=== PATIENT | male | born 1995 | race African-American/Black ===

== ENCOUNTER 2016-11-17 22:37 | Emergency (ER) | payer MEDICAID ==
[~2016-11-17] VITALS: Ht 170.2 cm; Wt 102.0 kg
[~2016-11-17 22:37] MED LIST: CEPH500C2 PO; HYDR-523 PO; IBUP-1510 PO
[2016-11-17 22:38] VITALS: BP 130/92
== END 2016-11-18 02:00 | disposition left against medical advice (07) ==
LOC: ER 23:20
DX: Z53.21 Procedure and treatment not carried out due to patient leaving prior to being seen by health care provider (principal)

== ENCOUNTER 2017-08-13 16:07 | Emergency (ER) | payer MEDICAID ==
[~2017-08-13] VITALS: Ht 172.7 cm; Wt 75.0 kg
[~2017-08-13 16:07] MED LIST changes: -CEPH500C2 PO; +ELVI1TAB3 PO; -HYDR-523 PO; -IBUP-1510 PO
[2017-08-13] MEDS ORDERED: QUET25TA PO (16:16)
[2017-08-13] MEDS ORDERED: SODIUM CHLORIDE 0.9% 1,000 ML IV ONE (16:53)
[2017-08-13 17:25] LABS: BASOPHILS % 0.5 % (0.0-2.0); EOSINOPHILS % 1.1 % (0.0-5.0); HEMATOCRIT. 48.4 % (42.0-52.0); HEMOGLOBIN. 16.6 g/dL (14.0-18.0); LYMPHOCYTES % 38.9 % (20.0-50.0); MEAN CORPUSCULAR HEMOGLOBIN 29.5 pg (28.0-32.0); MEAN CORPUSCULAR VOLUME 86.1 fL (80.0-94.0); MEAN PLATELET VOLUME 9.3 fl (7.4-10.4); MONOCYTES % 7.1 % (2.0-8.0); NEUTROPHILS % 52.4 % (40.0-76.0); PLATELET 246 x1000/uL (130-400); RED BLOOD CELL COUNT 5.62 mill/uL (4.7-6.1); RED CELL DISTRIBUTION WIDTH 15.8 % (11.6-14.6)
[2017-08-13 17:30] LABS: CHLORIDE 105 mEq/L (98-107)
[2017-08-13 17:34] LABS: ETHANOL BLOOD < 10 mg/dL
[2017-08-13 18:01] LABS: CLARITY URINE CLEAR (CLEAR); COLOR URINE YELLOW (YELLOW); KETONES URINE NEGATIVE (NEGATIVE); LEUKOCYTE ESTERASE URINE NEGATIVE (NEGATIVE); NITRITE URINE NEGATIVE (NEGATIVE); OCCULT BLOOD URINE NEGATIVE (NEGATIVE); PH URINE 6.5 (4.5-8.0); PROTEIN URINE NEGATIVE (NEGATIVE); SPECIFIC GRAVITY URINE 1.014 (1.005-1.030)
[2017-08-13 18:18] LABS: *BARBITURATES SCREEN URINE NEGATIVE (NEGATIVE)
[2017-08-13 18:19] LABS: *AMPHETAMINES SCREEN URINE NEGATIVE (NEGATIVE); *BENZODIAZEPINES SCREEN URINE PRESUMTIVE POSITIVE (NEGATIVE); *COCAINE SCREEN URINE NEGATIVE (NEGATIVE); METHADONE URINE SCREEN NEGATIVE (NEGATIVE); OPIATES URINE SCREEN NEGATIVE (NEGATIVE); PHENCYCLIDINE URINE SCREEN NEGATIVE (NEGATIVE)
[2017-08-13 18:20] LABS: CANNABINOID URINE SCREEN PRESUMTIVE POSITIVE (NEGATIVE)
[2017-08-14 13:09] VITALS: BP 126/73
== END 2017-08-14 13:26 ==
LOC: ER 16:17
DX: T43.592A Poisoning by other antipsychotics and neuroleptics, intentional self-harm, initial encounter (principal); J45.909 Unspecified asthma, uncomplicated; F12.10 Cannabis abuse, uncomplicated; F15.10 Other stimulant abuse, uncomplicated; Z88.0 Allergy status to penicillin; Y92.89 Other specified places as the place of occurrence of the external cause
CPT/HCPCS: 36415; 80053; 80305; 80307; 80329; 81003; 85025; 93005; 96360; 96361; 99285; G0482; J7030; Z7610

== ENCOUNTER 2019-12-22 17:59 | Emergency (ER) | payer MEDICAID ==
[~2019-12-22] VITALS: Ht 170.2 cm; Wt 65.0 kg
[~2019-12-22 17:59] MED LIST changes: +QUET25TA PO
[2019-12-22 19:53] LABS: BASOPHILS % 0.5 % (0.0-2.0); HEMATOCRIT. 42.5 % (42.0-52.0); HEMOGLOBIN. 14.3 g/dL (14.0-18.0); LYMPHOCYTES % 36.8 % (20.0-50.0); MEAN CORPUSCULAR HEMOGLOBIN 29.5 pg (28.0-32.0); MEAN CORPUSCULAR VOLUME 87.7 fL (80.0-94.0); MEAN PLATELET VOLUME 7.9 fl (7.4-10.4); NEUTROPHILS % 46.7 % (40.0-76.0); PLATELET 251 x1000/uL (130-400); RED BLOOD CELL COUNT 4.84 mill/uL (4.7-6.1); RED CELL DISTRIBUTION WIDTH 13.4 % (11.6-14.6)
[2019-12-22 20:00] LABS: CHLORIDE 105 mEq/L (98-107)
[2019-12-22 20:03] LABS: ETHANOL BLOOD < 10 mg/dL
[2019-12-22] MEDS: OLANZAPINE 5MG TABLET PO SCH (22:53)
[2019-12-23 01:53] LABS: CLARITY URINE CLEAR (CLEAR); COLOR URINE YELLOW (YELLOW); KETONES URINE TRACE (NEGATIVE); LEUKOCYTE ESTERASE URINE NEGATIVE (NEGATIVE); NITRITE URINE NEGATIVE (NEGATIVE); OCCULT BLOOD URINE NEGATIVE (NEGATIVE); PROTEIN URINE NEGATIVE (NEGATIVE); SPECIFIC GRAVITY URINE 1.029 (1.005-1.030)
[2019-12-23 05:56] LABS: *AMPHETAMINES SCREEN URINE PRESUMTIVE POSITIVE (NEGATIVE); *BARBITURATES SCREEN URINE NEGATIVE (NEGATIVE); *BENZODIAZEPINES SCREEN URINE NEGATIVE (NEGATIVE); *COCAINE SCREEN URINE NEGATIVE (NEGATIVE); CANNABINOID URINE SCREEN PRESUMTIVE POSITIVE (NEGATIVE); METHADONE URINE SCREEN NEGATIVE (NEGATIVE); OPIATES URINE SCREEN NEGATIVE (NEGATIVE); PHENCYCLIDINE URINE SCREEN NEGATIVE (NEGATIVE)
[2019-12-23] MEDS: OLANZAPINE 5MG TABLET PO SCH (10:41)
[2019-12-24] MEDS: OLANZAPINE 5MG TABLET PO SCH (09:30)
[2019-12-25] MEDS: OLANZAPINE 5MG TABLET PO SCH (08:32)
[2019-12-26] MEDS: OLANZAPINE 5MG TABLET PO SCH (09:38)
[2019-12-27 08:59] VITALS: BP 105/65
== END 2019-12-27 09:09 | disposition home or self-care (01) ==
LOC: ER 17:59
DX: R45.850 Homicidal ideations (principal); R45.851 Suicidal ideations; J45.909 Unspecified asthma, uncomplicated; F17.200 Nicotine dependence, unspecified, uncomplicated; F31.9 Bipolar disorder, unspecified; F20.9 Schizophrenia, unspecified; F39 Unspecified mood [affective] disorder; B20 Human immunodeficiency virus [HIV] disease; Z88.0 Allergy status to penicillin; Z20.828 Contact with and (suspected) exposure to other viral communicable diseases
CPT/HCPCS: 36415; 80053; 80320; 85025; 87635; 93005; 99285; G0480

== ENCOUNTER 2020-07-16 15:21 | Emergency (ER) | payer MEDICAID ==
[~2020-07-16] VITALS: Ht 170.2 cm; Wt 61.0 kg
[2020-07-16 15:35] VITALS: BP 123/88
[2020-07-16] MEDS ORDERED: ONDANSETRON HCL 4MG/2ML INJ IV STA (15:58)
[2020-07-16] MEDS ORDERED: SODIUM CHLORIDE 0.9% 1,000 ML IV ONE (16:00)
[2020-07-16 16:28] LABS: BASOPHILS % 0.3 % (0.0-2.0); EOSINOPHILS % 3.7 % (0.0-5.0); HEMATOCRIT. 45.4 % (42.0-52.0); HEMOGLOBIN. 15.2 g/dL (14.0-18.0); MEAN CORPUSCULAR HEMOGLOBIN 28.4 pg (28.0-32.0); MEAN CORPUSCULAR VOLUME 84.9 fL (80.0-94.0); MEAN PLATELET VOLUME 7.9 fl (7.4-10.4); MONOCYTES % 8.1 % (2.0-8.0); NEUTROPHILS % 69.9 % (40.0-76.0); PLATELET 298 x1000/uL (130-400); RED BLOOD CELL COUNT 5.35 mill/uL (4.7-6.1)
[2020-07-16 16:35] LABS: CHLORIDE 107 mEq/L (98-107)
[2020-07-16 16:38] LABS: INR 0.9; PROTHROMBIN TIME 9.8 sec (9.6-11.0)
[2020-07-16] MEDS ORDERED: AZITHROMYCIN 500 MG TABLET PO NR (17:30)
[2020-07-16] MEDS ORDERED: DOXY100C42 MT (17:31)
[2020-07-16] MEDS ORDERED: ELVI1TAB3 PO (17:33)
[2020-07-16] MEDS ORDERED: MUPI22OI2 TP (17:35)
[2020-07-16] MEDS ORDERED: DOXYCYCLINE HYCLATE 100MG CAPSULE PO NR (18:00)
== END 2020-07-16 18:18 | disposition home or self-care (01) ==
LOC: ER 15:21
DX: L98.498 Non-pressure chronic ulcer of skin of other sites with other specified severity (principal); K62.6 Ulcer of anus and rectum; F15.10 Other stimulant abuse, uncomplicated; Z79.899 Other long term (current) drug therapy; Z88.0 Allergy status to penicillin; E86.0 Dehydration
CPT/HCPCS: 36415; 80053; 85025; 85610; 86592; 86593; 86780; 96361; 96374; 99284; J2405; J7030

== ENCOUNTER 2020-10-28 20:00 | Emergency (ER) | payer MEDICAID ==
[~2020-10-28] VITALS: Ht 170.2 cm; Wt 66.8 kg
[~2020-10-28 20:00] MED LIST changes: +DOXY100C42 MT; +MUPI22OI2 TP
[2020-10-28 23:57] LABS: BASOPHILS % 0.6 % (0.0-2.0); EOSINOPHILS % 2.6 % (0.0-5.0); HEMATOCRIT. 41.2 % (42.0-52.0); HEMOGLOBIN. 13.9 g/dL (14.0-18.0); LYMPHOCYTES % 42.3 % (20.0-50.0); MEAN CORPUSCULAR VOLUME 85.8 fL (80.0-94.0); MEAN PLATELET VOLUME 8.2 fl (7.4-10.4); MONOCYTES % 11.3 % (2.0-8.0); NEUTROPHILS % 43.2 % (40.0-76.0); PLATELET 262 x1000/uL (130-400); RED CELL DISTRIBUTION WIDTH 14.4 % (11.6-14.6)
[2020-10-29 00:17] LABS: CHLORIDE 105 mEq/L (98-107)
[2020-10-29 00:21] LABS: ETHANOL BLOOD < 10 mg/dL
[2020-10-29] MEDS ORDERED: POTASSIUM CHLORIDE 20MEQ TABLET SR PO ONE (02:00)
[2020-10-29] MEDS ORDERED: HYDROXYZINE 25MG TABLET PO PRN (10:45)
[2020-10-29 11:22] LABS: CLARITY URINE CLEAR (CLEAR); COLOR URINE YELLOW (YELLOW); KETONES URINE TRACE (NEGATIVE); LEUKOCYTE ESTERASE URINE NEGATIVE (NEGATIVE); NITRITE URINE NEGATIVE (NEGATIVE); OCCULT BLOOD URINE NEGATIVE (NEGATIVE); PROTEIN URINE NEGATIVE (NEGATIVE); SPECIFIC GRAVITY URINE 1.029 (1.005-1.030)
[2020-10-29 11:33] LABS: *AMPHETAMINES SCREEN URINE PRESUMTIVE POSITIVE (NEGATIVE); *BARBITURATES SCREEN URINE NEGATIVE (NEGATIVE); *BENZODIAZEPINES SCREEN URINE NEGATIVE (NEGATIVE); *COCAINE SCREEN URINE NEGATIVE (NEGATIVE)
[2020-10-29 11:34] LABS: CANNABINOID URINE SCREEN NEGATIVE (NEGATIVE); METHADONE URINE SCREEN NEGATIVE (NEGATIVE); OPIATES URINE SCREEN NEGATIVE (NEGATIVE); PHENCYCLIDINE URINE SCREEN NEGATIVE (NEGATIVE)
[2020-10-29] MEDS: ARIPIPRAZOLE 5MG TABLET PO SCH (11:44)
[2020-10-29] MEDS: SERTRALINE HCL 50MG TABLET PO SCH (11:44)
[2020-10-29] MEDS: TRAZODONE HCL 50MG TABLET PO SCH (21:00)
[2020-10-30] MEDS: ARIPIPRAZOLE 5MG TABLET PO SCH (08:28)
[2020-10-30] MEDS: SERTRALINE HCL 50MG TABLET PO SCH (08:28)
[2020-10-30] MEDS: TRAZODONE HCL 50MG TABLET PO SCH (20:24)
[2020-10-31 05:37] VITALS: BP 118/70
== END 2020-10-31 06:31 | disposition home or self-care (01) ==
LOC: ER 20:00
DX: R45.851 Suicidal ideations (principal); R44.0 Auditory hallucinations; E87.6 Hypokalemia; F39 Unspecified mood [affective] disorder; F31.9 Bipolar disorder, unspecified; Z59.0 Homelessness; Z88.0 Allergy status to penicillin
CPT/HCPCS: 36415; 80053; 80320; 85025; 99285; G0480

== ENCOUNTER 2021-01-04 10:23 | Emergency (ER) | payer MEDICAID ==
[~2021-01-04] VITALS: Ht 157.5 cm; Wt 89.0 kg
[~2021-01-04 10:23] MED LIST changes: +DOXY-326 MT; -DOXY100C42 MT
[2021-01-04 10:28] VITALS: BP 154/97
== END 2021-01-04 13:42 | disposition left against medical advice (07) ==
LOC: ER 10:23
DX: Z53.21 Procedure and treatment not carried out due to patient leaving prior to being seen by health care provider (principal); F31.9 Bipolar disorder, unspecified; B20 Human immunodeficiency virus [HIV] disease

== ENCOUNTER 2021-01-11 19:09 | Emergency (ER) | payer MEDICAID ==
[~2021-01-11] VITALS: Ht 170.2 cm; Wt 71.0 kg
[2021-01-11] MEDS ORDERED: LORAZEPAM 2MG/ML CPJ IV STA (19:30)
[2021-01-11 20:02] LABS: BASOPHILS % 0.6 % (0.0-2.0); EOSINOPHILS % 0.6 % (0.0-5.0); HEMATOCRIT. 37.9 % (42.0-52.0); HEMOGLOBIN. 13.1 g/dL (14.0-18.0); LYMPHOCYTES % 30.4 % (20.0-50.0); MEAN CORPUSCULAR HEMOGLOBIN 28.7 pg (28.0-32.0); MEAN CORPUSCULAR VOLUME 83.1 fL (80.0-94.0); MEAN PLATELET VOLUME 7.7 fl (7.4-10.4); MONOCYTES % 8.9 % (2.0-8.0); NEUTROPHILS % 59.5 % (40.0-76.0); PLATELET 281 x1000/uL (130-400); RED BLOOD CELL COUNT 4.56 mill/uL (4.7-6.1); RED CELL DISTRIBUTION WIDTH 14.4 % (11.6-14.6)
[2021-01-11 20:14] LABS: CHLORIDE 105 mEq/L (98-107)
[2021-01-11 20:18] LABS: ETHANOL BLOOD < 10 mg/dL
[2021-01-12 01:40] LABS: CLARITY URINE CLEAR (CLEAR); COLOR URINE DARK YELLOW (YELLOW); KETONES URINE 1+ (NEGATIVE); LEUKOCYTE ESTERASE URINE NEGATIVE (NEGATIVE); NITRITE URINE NEGATIVE (NEGATIVE); OCCULT BLOOD URINE NEGATIVE (NEGATIVE); PROTEIN URINE TRACE (NEGATIVE); SPECIFIC GRAVITY URINE 1.036 (1.005-1.030)
[2021-01-12 01:49] LABS: *AMPHETAMINES SCREEN URINE PRESUMTIVE POSITIVE (NEGATIVE); *BARBITURATES SCREEN URINE NEGATIVE (NEGATIVE); *BENZODIAZEPINES SCREEN URINE NEGATIVE (NEGATIVE); *COCAINE SCREEN URINE NEGATIVE (NEGATIVE)
[2021-01-12 01:50] LABS: CANNABINOID URINE SCREEN NEGATIVE (NEGATIVE); METHADONE URINE SCREEN NEGATIVE (NEGATIVE); OPIATES URINE SCREEN NEGATIVE (NEGATIVE); PHENCYCLIDINE URINE SCREEN NEGATIVE (NEGATIVE)
[2021-01-12] MEDS: OLANZAPINE 5MG TABLET PO SCH ×2 (09:50→17:00)
[2021-01-13] MEDS: OLANZAPINE 5MG TABLET PO SCH ×2 (10:39→19:05)
[2021-01-14 00:35] VITALS: BP 120/83
== END 2021-01-14 01:00 | disposition short-term general hospital (02) ==
LOC: ER 19:09
DX: R45.851 Suicidal ideations (principal); F31.9 Bipolar disorder, unspecified; B20 Human immunodeficiency virus [HIV] disease; Z88.0 Allergy status to penicillin
CPT/HCPCS: 36415; 80053; 80307; 80320; 80329; 82962; 85025; 96374; 99285; J2060; G0480

== ENCOUNTER 2021-09-02 16:28 | Emergency (ER) | payer MEDICAID ==
[~2021-09-02] VITALS: Ht 170.2 cm; Wt 69.0 kg
[2021-09-02 23:07] LABS: BASOPHILS % 0.5 % (0.0-2.0); EOSINOPHILS % 2.3 % (0.0-5.0); HEMATOCRIT. 46.9 % (42.0-52.0); HEMOGLOBIN. 15.2 g/dL (14.0-18.0); LYMPHOCYTES % 30.2 % (20.0-50.0); MEAN CORPUSCULAR HEMOGLOBIN 27.5 pg (28.0-32.0); MEAN CORPUSCULAR VOLUME 84.8 fL (80.0-94.0); MEAN PLATELET VOLUME 8.5 fl (7.4-10.4); MONOCYTES % 5.1 % (2.0-8.0); NEUTROPHILS % 61.9 % (40.0-76.0); PLATELET 276 x1000/uL (130-400); RED BLOOD CELL COUNT 5.53 mill/uL (4.7-6.1); RED CELL DISTRIBUTION WIDTH 16.3 % (11.6-14.6)
[2021-09-02 23:10] LABS: CHLORIDE 106 mEq/L (98-107)
[2021-09-02 23:18] LABS: ETHANOL BLOOD < 10 mg/dL
[2021-09-02 23:50] LABS: CLARITY URINE CLEAR (CLEAR); COLOR URINE DARK YELLOW (YELLOW); KETONES URINE TRACE (NEGATIVE); LEUKOCYTE ESTERASE URINE NEGATIVE (NEGATIVE); NITRITE URINE NEGATIVE (NEGATIVE); OCCULT BLOOD URINE NEGATIVE (NEGATIVE); PH URINE 5.5 (4.5-8.0); PROTEIN URINE NEGATIVE (NEGATIVE); SPECIFIC GRAVITY URINE 1.037 (1.005-1.030)
[2021-09-03 00:06] LABS: *AMPHETAMINES SCREEN URINE PRESUMTIVE POSITIVE (NEGATIVE); *BARBITURATES SCREEN URINE NEGATIVE (NEGATIVE); *BENZODIAZEPINES SCREEN URINE NEGATIVE (NEGATIVE); *COCAINE SCREEN URINE NEGATIVE (NEGATIVE); CANNABINOID URINE SCREEN NEGATIVE (NEGATIVE); METHADONE URINE SCREEN NEGATIVE (NEGATIVE); OPIATES URINE SCREEN NEGATIVE (NEGATIVE); PHENCYCLIDINE URINE SCREEN NEGATIVE (NEGATIVE)
[2021-09-03] MEDS: RISPERIDONE 1MG TABLET PO SCH ×2 (09:30→22:24)
[2021-09-03] MEDS: VENLAFAXINE HCL 37.5MG SR CAPSULE 24HR PO SCH (09:30)
[2021-09-04] MEDS: VENLAFAXINE HCL 37.5MG SR CAPSULE 24HR PO SCH (09:33)
[2021-09-04] MEDS: RISPERIDONE 1MG TABLET PO SCH (09:33)
[2021-09-04 20:10] VITALS: BP 117/68
== END 2021-09-04 20:39 ==
LOC: ER 16:28
DX: F32.A Depression, unspecified (principal); Z79.899 Other long term (current) drug therapy; Z20.822 Contact with and (suspected) exposure to COVID-19
CPT/HCPCS: 80053; 80305; 80307; 80320; 81003; 85025; 99285; C9803; U0003; U0005; G0480

== ENCOUNTER 2021-09-17 20:30 | Emergency (ER) | payer MEDICAID ==
[~2021-09-17] VITALS: Ht 170.2 cm; Wt 69.0 kg
[2021-09-18 04:09] LABS: BASOPHILS % 0.4 % (0.0-2.0); EOSINOPHILS % 3.3 % (0.0-5.0); HEMATOCRIT. 43.2 % (42.0-52.0); HEMOGLOBIN. 14.2 g/dL (14.0-18.0); LYMPHOCYTES % 44.3 % (20.0-50.0); MEAN CORPUSCULAR HEMOGLOBIN 27.7 pg (28.0-32.0); MEAN CORPUSCULAR VOLUME 84.4 fL (80.0-94.0); MEAN PLATELET VOLUME 8.2 fl (7.4-10.4); MONOCYTES % 9.4 % (2.0-8.0); NEUTROPHILS % 42.6 % (40.0-76.0); PLATELET 269 x1000/uL (130-400); RED BLOOD CELL COUNT 5.12 mill/uL (4.7-6.1); RED CELL DISTRIBUTION WIDTH 16.4 % (11.6-14.6)
[2021-09-18 04:19] LABS: CHLORIDE 104 mEq/L (98-107)
[2021-09-18 04:29] LABS: ETHANOL BLOOD < 10 mg/dL
[2021-09-18 05:03] LABS: CLARITY URINE CLEAR (CLEAR); COLOR URINE DARK YELLOW (YELLOW); KETONES URINE TRACE (NEGATIVE); LEUKOCYTE ESTERASE URINE NEGATIVE (NEGATIVE); NITRITE URINE NEGATIVE (NEGATIVE); OCCULT BLOOD URINE NEGATIVE (NEGATIVE); PH URINE 5.5 (4.5-8.0); PROTEIN URINE NEGATIVE (NEGATIVE)
[2021-09-18 05:16] LABS: *AMPHETAMINES SCREEN URINE PRESUMTIVE POSITIVE (NEGATIVE); *BARBITURATES SCREEN URINE NEGATIVE (NEGATIVE); *BENZODIAZEPINES SCREEN URINE NEGATIVE (NEGATIVE); *COCAINE SCREEN URINE NEGATIVE (NEGATIVE); CANNABINOID URINE SCREEN NEGATIVE (NEGATIVE); METHADONE URINE SCREEN NEGATIVE (NEGATIVE); OPIATES URINE SCREEN NEGATIVE (NEGATIVE); PHENCYCLIDINE URINE SCREEN NEGATIVE (NEGATIVE)
[2021-09-18 10:07] VITALS: BP 106/73
== END 2021-09-18 10:31 | disposition home or self-care (01) ==
LOC: ER 20:30
DX: F19.10 Other psychoactive substance abuse, uncomplicated (principal); F41.9 Anxiety disorder, unspecified; F31.9 Bipolar disorder, unspecified; F12.10 Cannabis abuse, uncomplicated; F15.10 Other stimulant abuse, uncomplicated; Z88.0 Allergy status to penicillin; Z20.822 Contact with and (suspected) exposure to COVID-19
CPT/HCPCS: 36415; 80053; 80305; 80307; 80320; 80329; 81003; 82962; 85025; 99283; C9803; U0003; U0005; G0480

== ENCOUNTER 2023-01-04 20:44 | Emergency (ER) | payer MEDICAID ==
[~2023-01-04] VITALS: Ht 170.2 cm; Wt 68.0 kg
[~2023-01-04 20:44] MED LIST changes: -DOXY-326 MT; +DOXY-456 MT
[2023-01-04 20:59] VITALS: TEMP 97.5; O2SAT 99
[2023-01-04] MEDS ORDERED: KETOROLAC 30MG/ML VIAL IM ONE (21:30)
[2023-01-04] MEDS ORDERED: ACET-2708 MT (21:30)
[2023-01-04] MEDS ORDERED: BACITRACIN ZINC OINT UDPKT TOP ONE (21:30)
[2023-01-04 21:51] VITALS: BP 126/69; PULSE 80; RESP 17
== END 2023-01-04 21:54 | disposition home or self-care (01) ==
LOC: ER 20:44
DX: M79.671 Pain in right foot (principal); M79.672 Pain in left foot; F41.9 Anxiety disorder, unspecified; F31.9 Bipolar disorder, unspecified; F15.10 Other stimulant abuse, uncomplicated; Z88.0 Allergy status to penicillin
CPT/HCPCS: 96372; 99283; J1885; Z7610

== ENCOUNTER 2023-01-05 16:48 | Emergency (ER) | payer MEDICAID ==
[~2023-01-05] VITALS: Ht 177.8 cm; Wt 66.0 kg
[~2023-01-05 16:48] MED LIST changes: +ACET-2708 MT
[2023-01-05 16:55] VITALS: O2SAT 100
[2023-01-05] MEDS ORDERED: IBUPROFEN 600MG TABLET PO ONE (20:15)
[2023-01-05 20:45] LABS: CLARITY URINE CLEAR (CLEAR); COLOR URINE DARK YELLOW (YELLOW); GLUCOSE URINE NEGATIVE (NEGATIVE); KETONES URINE TRACE (NEGATIVE); LEUKOCYTE ESTERASE URINE NEGATIVE (NEGATIVE); NITRITE URINE NEGATIVE (NEGATIVE); OCCULT BLOOD URINE NEGATIVE (NEGATIVE); PH URINE 5.5 (4.5-8.0); PROTEIN URINE NEGATIVE (NEGATIVE); SPECIFIC GRAVITY URINE 1.027 (1.005-1.030)
[2023-01-05 21:05] LABS: *AMPHETAMINES SCREEN URINE PRESUMTIVE POSITIVE (NEGATIVE); *BARBITURATES SCREEN URINE NEGATIVE (NEGATIVE); *BENZODIAZEPINES SCREEN URINE NEGATIVE (NEGATIVE); *COCAINE SCREEN URINE NEGATIVE (NEGATIVE); CANNABINOID URINE SCREEN NEGATIVE (NEGATIVE); ECSTASY MDMA SCREEN URINE CONF.TEST INDICATED (NEGATIVE); OPIATES URINE SCREEN NEGATIVE (NEGATIVE); PHENCYCLIDINE URINE SCREEN NEGATIVE (NEGATIVE)
[2023-01-05 21:53] LABS: BASOPHILS % 0.4 % (0.0-2.0); EOSINOPHILS % 3.5 % (0.0-5.0); HEMATOCRIT. 39.5 % (42.0-52.0); HEMOGLOBIN. 12.9 g/dL (14.0-18.0); LYMPHOCYTES % 36.9 % (20.0-50.0); MEAN CORPUSCULAR HEMOGLOBIN 27.3 pg (28.0-32.0); MEAN CORPUSCULAR HGB CONC 32.7 g/dL (31.0-37.0); MEAN CORPUSCULAR VOLUME 83.5 fL (80.0-94.0); MONOCYTES % 10.1 % (2.0-8.0); NEUTROPHILS % 49.1 % (40.0-76.0); PLATELET 272 x1000/uL (130-400); RED BLOOD CELL COUNT 4.72 mill/uL (4.7-6.1); RED CELL DISTRIBUTION WIDTH 16.1 % (11.6-14.6); WHITE BLOOD COUNT 7.2 x1000/uL (4.5-11.0)
[2023-01-05 22:05] LABS: CHLORIDE 111 mEq/L (98-107); INDEX HEMOLYSI 2 (1-3); INDEX ICTERIC 1 (1-4); INDEX LIPEMIC 1 (1-3); POTASSIUM 3.7 mEq/L (3.5-5.1); SODIUM 141 mEq/L (136-145)
[2023-01-05 22:14] LABS: ACETAMINOPHEN < 2 ug/mL (10-30); ALANINE AMINOTRANSFERASE 20 IU/L (13-61); ALBUMIN 2.4 g/dL (3.4-5.0); ASPARTATE AMINOTRANSFERASE 14 IU/L (15-37); BILIRUBIN TOTAL 0.5 mg/dL (0.1-1.0); CALCIUM 7.7 mg/dL (8.5-10.1); CARBON DIOXIDE 30 mEq/L (21-32); CREATININE 0.7 mg/dL (0.6-1.3); ETHANOL BLOOD < 10 mg/dL (<10); GLUCOSE 121 mg/dL (70-105); PROTEIN TOTAL 6.4 g/dL (6.0-8.3); UREA NITROGEN BLOOD 12 mg/dL (7-21)
[2023-01-07 10:13] VITALS: BP 128/84; PULSE 55; RESP 18; TEMP 98
== END 2023-01-07 12:53 | disposition home or self-care (01) ==
LOC: ER 16:48
DX: M79.671 Pain in right foot (principal); M79.672 Pain in left foot; F41.9 Anxiety disorder, unspecified; F31.9 Bipolar disorder, unspecified; F15.10 Other stimulant abuse, uncomplicated; Z79.899 Other long term (current) drug therapy; Z88.0 Allergy status to penicillin; Z20.822 Contact with and (suspected) exposure to COVID-19
CPT/HCPCS: 80053; 80305; 81003; 80307; 80329; 80320; 85025; 36415; 93005; 99285; 87426; C9803; G0480